=== PATIENT | male | born 1980 | race African-American/Black ===

== ENCOUNTER 2022-01-03 00:49 | Emergency (ER) | payer BC ==
[2022-01-03 01:32] VITALS: BP 153/86; PULSE 67; BMI 31.6
[2022-01-03] MEDS ORDERED: BUPIVACAINE HCL/PF 0.5% (5 MG/ML) 30 ML VIAL IJ ONE (01:40)
[2022-01-03] MEDS ORDERED: BUPIVACAINE HCL/PF 0.5% (5MG/ML) 10 ML VIAL ONE (01:41)
== END 2022-01-03 02:28 | disposition home or self-care (01) ==
LOC: JER 00:49
DX: K08.89 Other specified disorders of teeth and supporting structures (principal)
CPT/HCPCS: 99283-25